=== PATIENT | male | born 1975 | race Caucasian/White ===

== ENCOUNTER 2019-03-08 09:55 | Emergency (ER) | payer OTHER ==
[2019-03-08] MEDS ORDERED: MORPHINE 10 MG/ML VIAL IVP STA ×2 (10:09→10:51)
[2019-03-08] MEDS ORDERED: ONDANSETRON 4 MG/2 ML VIAL IVP STA (10:09)
[2019-03-08] MEDS ORDERED: SODIUM CHLORIDE 0.9% 1,000 ML IV STA (10:09)
[2019-03-08 10:25] LABS: BASOPHILS # (AUTO) 0.1 10^3/uL (0.0-0.1); BASOPHILS % (AUTO) 1.3 %; EOSINOPHILS # (AUTO) 0.1 10^3/uL (0.0-0.7); EOSINOPHILS % (AUTO) 1.7 %; HGB - HEMOGLOBIN 15.7 g/dL (14.0-18.0); LYMPHOCYTES # (AUTO) 2.5 10^3/uL (1.5-3.5); LYMPHOCYTES % (AUTO) 34.2 %; MEAN CORPUSCULAR HEMOGLOBIN 31.9 pg (27.0-31.0); MEAN CORPUSCULAR HGB CONC 36.3 g/dL (32.0-36.0); MEAN PLATELET VOLUME 9.7 fL (7.4-11.4); MONOCYTES # (AUTO) 0.5 10^3/uL (0.0-1.0); MONOCYTES % (AUTO) 7.4 %; PLT - PLATELET COUNT 339 10^3/uL (130-450); RED BLOOD COUNT 4.92 10^6/uL (4.70-6.10); RED CELL DISTRIBUTION WIDTH 12.7 % (12.0-15.0); WHITE BLOOD COUNT 7.2 x10^3/uL (4.8-10.8)
[2019-03-08] MEDS ORDERED: IOVERSOL 320 100 ML VIAL IVP ONE ×2 (10:26→15:38)
--- NOTE | 2019-03-08 10:40 | ED Physician Documentation ---
History of Present Illness - Stated complaint Stated Complaint: SIDE PX - Chief complaint Chief Complaint: Abd Pain - Additonal information Additional information: This is a 43 year old male who presents with acute onset right flank pain that began suddenly this morning and is associated with nausea. He states the pain is sharp and located over the right lower abdomen radiating to the flank. He has never had a kidney stone, and still has his appendix. No fever. He has not noticed hematuria. Review of Systems Constitutional: denies: Fever Cardiac: denies: Chest pain / pressure GI: reports: Abdominal Pain, Nausea : denies: Dysuria Skin: denies: Rash Musculoskeletal: reports: Back pain Neurologic: denies: Generalized weakness Immunocompromised: denies: Immunocompromised PD PAST MEDICAL HISTORY - Past Medical History GI: Other (diverticulosis) - Past Surgical History Ortho: Arthroscopic surgery - Present Medications Home Medications: Ambulatory Orders Medication Instructions Recorded Confirmed Hydrocodone/Acetaminophen 1 - 2 each PO Q6H PRN #10 tablet 03/08/19 [Hydrocodon-Acetaminophen 5-325] Ondansetron Odt [Zofran] 4 mg TL Q6H PRN #10 tablet 03/08/19 Tamsulosin [Flomax] 0.4 mg PO DAILY #14 capsule 03/08/19 - Allergies Allergies/Adverse Reactions: Allergies Allergy/AdvReac Type Severity Reaction Status Date / Time No Known Drug Allergies Allergy Verified 03/08/19 10:03 - Living Situation Living Arrangement: reports: At home - Social History Does the pt smoke?: No Does the pt drink ETOH?: Yes ETOH Use: Liquor (occasional) PD ED PE NORMAL - Vitals Vital signs reviewed: Yes - General General: Alert and oriented X 3 - HEENT HEENT: PERRL - Neck Neck: Supple, no meningeal sign - Cardiac Cardiac: RRR - Respiratory Respiratory: Clear bilaterally - Abdomen Abdomen: Soft, Non distended, Other (Very mild RLQ tenderness to palpation without guarding) - Derm Derm: Warm and dry - Extremities Extremities: No deformity - Neuro Neuro: Alert and oriented X 3 Results - Vitals Vitals: Vital Signs - 24 hr 03/08/19 03/08/19 03/08/19 10:02 10:08 10:30 Temperature 37.2 C Heart Rate 78 79 84 Respiratory 24 28 H 22 Rate Blood Pressure 172/116 H 161/117 H 150/32 H O2 Saturation 99 99 99 11/04/19 11/04/19 11/04/19 11:10 11:45 12:30 Temperature Heart Rate 77 73 72 Respiratory 16 16 16 Rate Blood Pressure 137/86 H 128/85 H 117/89 H O2 Saturation 97 96 97 03/08/19 03/08/19 13:10 13:20 Temperature 98.7 C H Heart Rate 79 85 Respiratory 16 18 Rate Blood Pressure 118/79 120/82 H O2 Saturation 97 98 Oxygen O2 Source Room air - Labs Labs: Laboratory Tests 03/08/19 03/08/19 03/08/19 10:20 10:34 12:25 WBC 7.2 RBC 4.92 Hgb 15.7 Hct 43.3 MCV 88.0 MCH 31.9 H MCHC 36.3 H RDW 12.7 Plt Count 339 MPV 9.7 Neut # (Auto) 4.0 Lymph # (Auto) 2.5 [place] # (Auto) 0.5 Eos # (Auto) 0.1 Baso # (Auto) 0.1 Absolute Nucleated RBC 0.00 Nucleated RBC % 0.0 Sodium 139 Potassium 4.1 Chloride 105 Carbon Dioxide 22 Anion Gap 12.0 BUN 18 Creatinine 1.2 Estimated GFR (MDRD) 66 L Glucose 119 H Calcium 9.4 Total Bilirubin 0.8 AST 34 ALT 59 Alkaline Phosphatase 60 Total Protein 7.7 Albumin 4.7 Globulin 3.0 Albumin/Globulin Ratio 1.6 Lipase 29 Urine Color YELLOW Urine Clarity CLEAR Urine pH 7.5 Ur Specific Crocker <=1.005 Urine Protein NEGATIVE Urine Glucose (UA) NEGATIVE Urine Ketones NEGATIVE Urine Occult Blood LARGE H Urine Nitrite NEGATIVE Urine Bilirubin NEGATIVE Urine Urobilinogen 0.2 (NORMAL) Ur Leukocyte Esterase NEGATIVE Urine RBC 11-25 H Urine WBC 0-3 Ur Squamous Epith Cells NONE SEEN Urine Bacteria None Seen Ur Microscopic Review INDICATED Urine Culture Comments NOT INDICATED - Rads (name of study) CT abd/pelvis Radiology: Other (4mm right UVJ stone) PD MEDICAL DECISION MAKING - ED course Complexity details: considered differential (Neprholithasis, UTI, appendicitis, obstruction, hernia) ED course: Pt was given morphine and zofran for pain, he required an additional dose of morphine for further pain control. Labs show normal kidney function, CT shows 4mm R UVJ stone, and UA negative for infection. After toradol patient's pain was very well controlled. I discussed the diagnosis and treatment, prescribed tamsulosin, zofran, and hydrocodone for pain not controlled by ibuprofen, and patient was discharged home in good condition with follow up instructions and return precautions Departure - Departure Disposition: 01 Home, Self Care Clinical Impression: Renal colic Condition: Good Instructions: ED Stone Renal W Colic Follow-Up: Your,PCP [Other] Prescriptions: Hydrocodone/Acetaminophen [Hydrocodon-Acetaminophen 5-325] 1 - 2 each PO Q6H PRN #10 tablet PRN Reason: pain Ondansetron Odt [Zofran] 4 mg TL Q6H PRN #10 tablet PRN Reason: Nausea / Vomiting Tamsulosin [Flomax] 0.4 mg PO DAILY #14 capsule Comments: You have a 4 mm kidney stone, this will likely pass on its own. Please take the Flomax, you may take ibuprofen for pain control, if this is not effective you may use the hydrocodone sparingly. Return if you have persistent vomiting, worsening pain, fever, or other concerning symptoms. Please follow-up with your primary care provider and consider establishing with a urologist. Do not drink alcohol or drive while taking narcotic pain medication. Note that many narcotic pain relievers also contain Tylenol/acetaminophen. Please ensure that your total dose of acetaminophen from all sources does not exceed 3 g (3000 mg) per day. You may get constipated while on this medication. Take a stool softener such as Colace twice a day while you are on it. Also add an [id number] laxative such as senna or MiraLAX on any day that you do not have a bowel movement. If you received a narcotic pain medication or sedative while in the emergency department, do not drive for the next 24 hours. Discharge Date/Time: 03/08/19 13:20
[2019-03-08] MEDS ORDERED: METOCLOPRAMIDE 10 MG/2 ML VIAL IVP STA (10:50)
[2019-03-08 10:52] LABS: ALBUMIN 4.7 g/dL (3.2-5.5); ALBUMIN/GLOBULIN RATIO 1.6 (1.0-2.2); BILIRUBIN,TOTAL 0.8 mg/dL (0.2-1.0); CALCIUM 9.4 mg/dL (8.5-10.3); CREATININE 1.2 mg/dL (0.6-1.2); TOTAL PROTEIN 7.7 g/dL (6.7-8.2)
--- NOTE | 2019-03-08 11:38 | CT Report ---
Reason: RLQ pain, sudden onset Procedure Date: 03/08/2019 Accession Number: [id number] / [id number] Procedure: CT - Abdomen/Pelvis W CPT Code: Final Report FULL RESULT: EXAM: CT ABDOMEN AND PELVIS EXAM DATE: 03/08/2019 11:11 AM. CLINICAL HISTORY: RLQ pain, sudden onset. COMPARISONS: None. TECHNIQUE: Routine helical CT imaging was performed through the abdomen and pelvis. IV contrast: OPTI 320 100ML. Enteric contrast: No. Reconstructions: Coronal and sagittal. In accordance with CT protocol optimization, one or more of the following dose reduction techniques were utilized for this exam: automated exposure control, adjustment of mA and/or KV based on patient size, or use of iterative reconstructive technique. FINDINGS: Lung Bases: Unremarkable. Liver: Diffuse decreased liver attenuation compatible with fatty infiltration. No focal lesion evident. Gallbladder/Bile Ducts: Unremarkable. Spleen: Normal. Pancreas: Normal. Adrenal Glands: Normal. Kidneys: 4 mm right UVJ, ureterovesicular junction stone. Mild fullness distal right ureter. No hydronephrosis. Unremarkable left kidney. Peritoneal Cavity/Bowel: Normal. No free fluid, free air or adenopathy. No masses or acute inflammatory process. The appendix is well visualized and normal. Pelvic Organs: Prostatic calcifications. The bladder and visualized pelvic organs are within normal limits. Vasculature: No aneurysms or other significant abnormality. Bones: No significant abnormality. Other: None. IMPRESSION: 1. A 4 mm right UVJ stone. Mild fullness distal right ureter. No hydronephrosis. 2. Normal appendix. 3. Fatty liver. RADIA
[2019-03-08] MEDS ORDERED: KETOROLAC 30 MG/ML VIAL IVP STA (12:13)
[2019-03-08 12:35] LABS: BILIRUBIN,URINE NEGATIVE (NEGATIVE); GLUCOSE, URINE (UA) NEGATIVE (NEGATIVE); KETONES,URINE (UA) NEGATIVE (NEGATIVE); LEUKOCYTE ESTERASE, URINE NEGATIVE (NEGATIVE); NITRITE,URINE NEGATIVE (NEGATIVE); OCCULT BLOOD,URINE LARGE (NEGATIVE); PH,URINE 7.5 PH (5.0-7.5); PROTEIN,URINE NEGATIVE (NEGATIVE); UROBILINOGEN,URINE 0.2 (NORMAL) E.U./dL (NORMAL)
[2019-03-08 12:37] LABS: CLARITY,URINE CLEAR (CLEAR)
[2019-03-08 13:00] LABS: BACTERIA,URINE None Seen /HPF (None Seen); SQUAMOUS EPITHELIAL CELL,UR NONE SEEN (<= Few)
[2019-03-08 13:21] VITALS: BP 120/82
== END 2019-03-08 13:20 | disposition home or self-care (01) ==
LOC: ED 09:55
DX: N20.1 Calculus of ureter (principal)
CPT/HCPCS: 36415; 74177; 80053; 81001; 83690; 85025; 96361; 96374; 96375; 99283; 99284; J2765; Q9967; 81003; 87086

== ENCOUNTER 2019-06-24 07:29 | Outpatient (CLI) | payer OTHER ==
--- NOTE | 2019-06-24 10:33 | MRI Report ---
Reason: PAIN IN RT KNEE Procedure Date: 06/24/2019 Accession Number: [id number] / [id number] Procedure: MRI - Knee RT W/O CPT Code: Final Report FULL RESULT: EXAM: RIGHT KNEE MRI WITHOUT CONTRAST EXAM DATE: 06/24/2019 08:54 AM. CLINICAL HISTORY: Pain in right knee. Medial knee pain for many years. 2 previous scopes 1994. COMPARISON: None. TECHNIQUE: Multiplanar, multisequence T1-weighted and fluid-sensitive sequences of the knee without contrast. Other: None. FINDINGS: Bones: No fractures or subluxations. No marrow edema. No bone lesions. Articular Cartilage: Minimal shallow partial-thickness cartilage loss central aspects medial and lateral compartments. Deep partial-thickness fissuring/tearing at the central trochlea. Shallow irregularity over the median ridge of the patella. Medial Meniscus: Minimal blunting at the free edges. No discrete fluid-filled tear. Lateral Meniscus: The lateral meniscus is intact. Cruciate Ligaments: The anterior and posterior cruciate ligaments are intact. Collateral Ligaments: The medial collateral and lateral collateral ligamentous structures are intact. Tendons: Mild quadriceps and patellar tendinopathy. Popliteus and semimembranosus tendons unremarkable. Musculature: No edema or fatty atrophy. Other: Small joint effusion. No popliteal cyst. No loose bodies. The medial and lateral retinacula are intact. The subcutaneous tissues and fat pads are unremarkable. IMPRESSION: 1. Minimal blunting at the free edges medial meniscus. This may be postsurgical and/or degenerative fraying. No discrete fluid-filled tear. 2. Deep partial-thickness cartilage fissuring/tearing central trochlea. Minimal cartilage loss at the patella and medial and lateral compartments. 3. Small joint effusion. 4. Cruciate and collateral ligaments intact. 5. Mild quadriceps and patellar tendinopathy. RADIA
== END 2019-06-24 07:30 | disposition home or self-care (01) ==
LOC: DI 07:29
DX: S83.8X1A Sprain of other specified parts of right knee, initial encounter (principal); M76.51 Patellar tendinitis, right knee; M76.891 Other specified enthesopathies of right lower limb, excluding foot

== ENCOUNTER 2020-10-04 14:35 | Outpatient (CLI) | payer OTHER ==
[2020-10-04 15:27] VITALS: BP 123/94
--- NOTE | 2020-10-04 15:27 | SLEEP CARE CONSULTATION ---
Information from patient questionnaire entered by Shannan Gracia. I have reviewed and concur with the information entered by Shannan Gracia. This document represents the service I personally performed and the decisions made by me, Lida Velázquez ARNP. History of Present Illness Service Date and Time: 10/04/2020 1435 Reason for Visit: New patient, Previously diagnosed sleep apnea (mild - AHI - 14.4), sleep apnea on CPAP therapy ([employer]) Chief Complaint: reports: Other (yearly check up) Date of Onset: Usual bedtime: 10:30 pm Time it takes to fall asleep: 5-10 minutes Snores at night: Yes Observed to quit breathing while asleep: Yes Sleeps alone due to snoring: No Number of times waking at night: not sure Reasons for waking at night: reports: Choking, Gasping for air, Pain Toss, Turn, or Twitch while sleeping: Yes Recalls having dreams: Yes Usually gets out of bed at: 5:30 am Feels refreshed in the morning: Yes Morning headache: No Sleepy or fatigued during the day: No Ever fallen asleep while driving: No Takes day naps: No Dreams during day naps: No Prior sleep studies: Yes Year and Where: 2016 - Sleep Lab Additional HPI information: SANGITA CRUZ who was previoudly diagnosed to have mild, AHI 14.4, obstructive sleep apnea-hypopnea syndrome and comes in today to establish care for CPAP therapy. He was going to Sleep lab for follow ups and then to [facility] who did not follow through for him to get supplies. - Parasomnia Symptoms Ever been unable to move upon waking from sleep: No Walks in sleep: No Talks in sleep: No Ever acted out dreams in sleep: No Ever felt weak in the knees when startled or emotional: No Bothered by creepy, crawly, restless sensations in legs: No Problems with memory or concentration: No CPAP Compliance Data - Data Reviewed with Patient Average duration of nightly device use: 7 hr 7 min Compliance rate %: 95 (180 days) Current pressure setting (cmH2O): 9-11 Humidity settin Average residual AHI: 0.4 Compliance data discussion: He has been getting his supplies from [employer]. He needs to get supplies. He last got supplies over a year ago. He is using a Dreamwear nasal cushion mask. He last changed out nasal cushion yesterday. He has old mask for backup. Subjective Patient concerns: denies: aerophagia, mask discomfort, air blowing in eyes, mask leak noise, condensation in mask/hose, nasal congestion, dry mouth, nose, throat, epistaxis, other Observed to snore while using device: No Current pressure setting perceived as: comfortable On therapy, patient: reports: sleeping better, awakening more refreshed, being more awake and alert during the day, more rested overall. denies: drowsiness while driving Initial [place] Sleepiness Scale score: 4 (in 2020) Social History The patient's occupation is a [employer]. Patient is and lives in [place]. Have you smoked in the past 12 months: No (chew) Cigarettes per day (20/pack): 1 (can) Years of smokin (or more) Smoking Pack Years: 0 Alcohol use: Yes Alcohol amount and frequency: 3-4 drinks weekly Caffeine use: Yes Caffeine amount and frequency: 2 cups of coffee daily Family History Family history of sleep disordered breathing: Yes Family Hx Sleep Apnea: Father: Snoring, Sleep apnea - Untreated, Grandparent: Snoring, Sleep apnea - Untreated Allergies and Home Medications Drug allergies reviewed: Yes (NKDA) Home medication list reviewed: Yes (daily vitamin) Review of Systems Cardiovascular: denies: high blood pressure Neurological: denies: headaches Psychiatric: denies: anxiety, depression Musculoskeletal: reports: joint pain, neck pain, back pain Physical Exam Blood Pressure: 123/94 Cuff size: wrist Heart Rate: 89 O2 Saturation: 99 Height: 6 ft 1 in Weight: 188 lb Body Mass Index: 24.7 BMI Classification: Healthy weight Impression and Plan 1. Obstructive Sleep Apnea-Hypopnea Syndrome, mild, with excellent treatment compliance and excellent apnea control. On CPAP therapy, the patient has better sleep quality and is more rested overall. He has been unable to get supplies for over a year and is running out of supplies. We will need to transfer him to a new DME for him to get supplies since [facility] no longer does CPAP supplies. I will have my recycle coordinator inform of DME options. A DWO prescription will then be made. Patient advised to contact this office if further supply problems. He has significant improvement of his sleep apnea nd is very satisfied with CPAP therapy. He intends to continue with treatment long-term. Patient's apnea severity and rationale for treatment to reduce apnea, improve sleep quality and reduce cardiovascular and cerebrovascular events was reviewed. * Continue auto CPAP pressure at 9-11 cmH2O * Transfer DME * Notify me if snoring with mask or feeling that the pressure is too much or too little * Maintain a healthy weight * Call this office if any problems using CPAP * Return for follow up in 1 year, or sooner if concerns arise Counseling Topics: Weight control Visit Type: In Office Time Spent with Patient (minutes): 31 Provider Statement: I spent 100% of the Face to Face Visit with the patient with greater than 50% spent counseling the patient and coordination of care.
== END 2020-10-04 14:36 | disposition home or self-care (01) ==
LOC: SC 14:35
PROVIDERS: ATTEND Nurse Practitioner Family
DX: G47.33 Obstructive sleep apnea (adult) (pediatric) (principal); Z72.0 Tobacco use
CPT/HCPCS: 99203; 99212

== ENCOUNTER 2021-01-15 13:57 | Outpatient (CLI) | payer OTHER ==
--- NOTE | 2021-01-16 14:34 | MRI Report ---
PROCEDURE: Shoulder RT W/O INDICATIONS: PAIN IN RIGHT SHOULDER TECHNIQUE: Noncontrast oblique coronal T2 fast spin echo with fat saturation, oblique sagittal T1 spin echo and T2 fast spin echo with fat saturation, axial T1 spin echo and T2 fast spin echo with fat saturation t hrough the shoulder. COMPARISON: None. FINDINGS: Image quality: Excellent. Rotator cuff: There is partial-thickness tear of the supraspinatus, infraspinatus and subscapularis t endons involving both articular and bursal surface, and associated tendinitis. There is no tendon ret raction or rotator cuff muscle atrophy on sagittal images. Bones and bursae: No bone marrow contusions or fractures. Mild acromioclavicular and glenohumeral slim int degeneration. The acromion demonstrates conventional anatomy, without an os acromiale. No patho logic subacromial/subdeltoid bursal fluid is present. Capsule and soft tissues: There is mild degenerative fraying of the anterior superior labrum. In the absence of intra-articular contrast, the glenohumeral ligaments appear intact. The long head of the biceps tendon demonstrates normal location and morphology. The rotator interval appears normal, wit hout fibrosis. The coracohumeral ligament is normal in thickness. IMPRESSION: 1. Partial-thickness tear of the supraspinatus, infraspinous and subscapularis tendons with associate d tendinitis. 2. Mild acromioclavicular and glenohumeral joint degeneration. 3. Mild degenerative fraying of the anterior superior labrum. Reviewed by: Kay Martin MD on 01/16/2021 2:33 PM PDT Approved by: Kay Martin MD on 01/16/2021 2:33 PM PDT Station ID: [id number]
== END 2021-01-15 13:58 | disposition home or self-care (01) ==
LOC: DI 13:57
PROVIDERS: ATTEND Family Medicine
DX: M75.111 Incomplete rotator cuff tear or rupture of right shoulder, not specified as traumatic (principal); M19.011 Primary osteoarthritis, right shoulder

== ENCOUNTER 2022-09-03 10:35 | Outpatient (CLI) | payer OTHER ==
--- NOTE | 2022-09-03 11:08 | Sleep Patient Instructions ---
Sleep Center Visit Summary - Patient Visit Information Reason for Visit: Annual visit for compliance and DME prescription renewal. - Patient Instructions Additional Instructions: We will follow up in 1 year. We encourage weight loss. He may call or come in sooner with any concerns. - Clinic Information Contact: [facility] [address] [place] [address] [email or web address] T: [phone]
[2022-09-03 11:11] VITALS: BP 100/64
--- NOTE | 2022-09-03 11:11 | SLEEP CARE CONSULTATION ---
Information from patient questionnaire entered by Deisi Martin. I have reviewed and concur with the information entered by Deisi Martin. This document represents the service I personally performed and the decisions made by me, Lida Velázquez ARNP. History of Present Illness Service Date and Time: 09/03/2022 1035 Previous diagnosis: Mild, Obstructive Sleep Apnea-Hypopnea Syndrome AHI: 14.4 (in 2017) Reason for follow up: annual (LAST SEEN 10/2020) Equipment type: CPAP (RESMED Airsense 10, s/u 05/2017; SD CARD NEEDED FOR DOWNLOAD AND PRESSURE CHANGES) Equipment obtained from: [facility] (getting supplies) Mask style: Nasal Mask brand: Respironics (Dreamwear) Backup mask available: Yes (old mask) Last cushion change: 1 week or so Prior sleep studies: Yes Year and Where: 2017 - Sleep Lab HPI additional information: SANGITA CRUZ was diagnosed to have mild, AHI 14.4, obstructive sleep apnea- hypopnea syndrome and returned today for CPAP therapy annual follow-up. Sleep Study - Results Prior sleep studies: Yes Year and Where: 2017 - Sleep Lab CPAP Compliance Data - Data Reviewed with Patient Average duration of nightly device use: 6 hours 25 minutes Compliance rate %: 96 (174/180 days used) Current pressure setting (cmH2O): 9-11 Average residual AHI: 0.5 Central apnea: 0.1 Obstructive apnea: 0.4 Subjective Missed days of use due to: reports: other (fell asleep without it) Patient concerns: denies: aerophagia, mask discomfort, air blowing in eyes, mask leak noise, condensation in mask/hose, nasal congestion, dry mouth, nose, throat, epistaxis Observed to snore while using device: No Current pressure setting perceived as: comfortable On therapy, patient: reports: sleeping better, awakening more refreshed, being more awake and alert during the day, more rested overall. denies: drowsiness while driving Initial [place] Sleepiness Scale score: 4 (in 2020) Current Gilbert Sleepiness Scale score: 4 (09/03/22) Allergies and Home Medications Known drug allergies: No Drug allergies reviewed: Yes Home medication list reviewed: Yes (lisinopril 10 mg daily) Allergy and home medication list: Allergies No Known Drug Allergies Allergy (Verified 09/02/22 09:08) Review of Systems Review of systems same as previous: No (hypertension; R shoulder surgery for labrum, rotator cuff, September 2021) Physical Exam Vital signs obtained and entered by: DEISI Kang MA Blood Pressure: 100/64 (LEFT ARM) Cuff size: regular Heart Rate: 90 O2 Saturation: 95 Height: 6 ft 1 in Weight: 203 lb Weight change since last visit: 21 lb gain Body Mass Index: 26.7 BMI Classification: Overweight Impression and Plan 1. Obstructive Sleep Apnea-Hypopnea Syndrome, mild, with good treatment compliance and good apnea control. On CPAP therapy, the patient has better sleep quality and is more rested overall. Patient has significant improvement of their sleep apnea and is satisfied with current CPAP therapy. Patient denies problems with oral dryness, nasal congestion, epistaxis, skin irritation or aerophagia. I will update his prescription with his DME for further supplies. We will see him next year. Patient's apnea severity and rationale for treatment to reduce apnea, improve sleep quality and reduce cardiovascular and cerebrovascular events was reviewed. 2. Overweight, unspecified. Currently patients BMI is 26.7. Obesity increases the risk of apnea, CPAP pressure requirements and overall health risks especially cardiovascular and diabetes. Thus patient is advised to lose weight. * Continue auto CPAP pressure at 9-11 cmH2O * Update supplies * Advised to try to lose weight * Notify me if snoring with mask or feeling that the pressure is too much or too little * Call this office if any problems using CPAP * Return for follow up in 1 year, or sooner if concerns arise Counseling Topics: Spare mask, Weight loss health impact Visit Type: In Office Time Spent with Patient (minutes): 20 Provider Statement: I spent 100% of the Face to Face Visit with the patient with greater than 50% spent counseling the patient and coordination of care.
== END 2022-09-03 10:36 | disposition home or self-care (01) ==
LOC: SC 10:35
PROVIDERS: ATTEND Nurse Practitioner Family
DX: G47.33 Obstructive sleep apnea (adult) (pediatric) (principal); E66.3 Overweight; Z68.26 Body mass index [BMI] 26.0-26.9, adult
CPT/HCPCS: 99212; 99213

== ENCOUNTER 2023-09-16 08:34 | Outpatient (CLI) | payer OTHER ==
--- NOTE | 2023-09-16 09:17 | Sleep Patient Instructions ---
Sleep Center Visit Summary - Patient Visit Information Reason for Visit: Annual followup - Patient Instructions Additional Instructions: You will continue with CPAP therapy with pressure set at 9-11 cmH2O. A supply prescription will be updated with your DME. Please follow up with the sleep care office in 1 year. - Clinic Information Contact: [facility] [address] [place] [address] [email or web address] T: [phone]
--- NOTE | 2023-09-16 09:21 | SLEEP CARE CONSULTATION ---
Information from patient questionnaire entered by Deisi Martin. I have reviewed and concur with the information entered by Deisi Martin. This document represents the service I personally performed and the decisions made by , Lida Velázquez ARNP. History of Present Illness Service Date and Time: 09/16/2023 0834 Previous diagnosis: Mild, Obstructive Sleep Apnea-Hypopnea Syndrome AHI: 14.4 (in 2017) Reason for follow up: annual (LAST SEEN 09/2022) Equipment type: CPAP (RESMED Airsense 10, s/u 05/2017; SD CARD NEEDED FOR DOWNLOAD AND PRESSURE CHANGES) Equipment obtained from: [employer] (getting supplies) Mask style: Nasal Mask brand: Respironics (Dreamwear) Backup mask available: Yes Last cushion change: 2 weeks Prior sleep studies: Yes Year and Where: 2016 - Sleep Lab HPI additional information: SANGITA CRUZ was diagnosed to have mild, AHI 14.4, obstructive sleep apnea- hypopnea syndrome and returned today for CPAP therapy annual follow-up. Sleep Study - Results Prior sleep studies: Yes Year and Where: 2017 - Sleep Lab CPAP Compliance Data - Data Reviewed with Patient Average duration of nightly device use: 7 hours 4 minutes Compliance rate %: 98 (357/365 days used) Current pressure setting (cmH2O): 9-11 Average residual AHI: 0.4 Central apnea: 0.1 Obstructive apnea: 0.2 Hypopnea: 0.1 Average large leak: 3.4 L/min Subjective Missed days of use due to: reports: travel, other (fell asleep on couch) Patient concerns: denies: aerophagia, mask discomfort, air blowing in eyes, mask leak noise, condensation in mask/hose, nasal congestion, dry mouth, nose, throat, epistaxis Observed to snore while using device: No Current pressure setting perceived as: comfortable On therapy, patient: reports: sleeping better, awakening more refreshed, being more awake and alert during the day, more rested overall. denies: drowsiness while driving Initial Floral Sleepiness Scale score: 4 (in 2020) Current Floral Sleepiness Scale score: 5 (09/16/23) Allergies and Home Medications Known drug allergies: No Drug allergies reviewed: Yes Home medication list reviewed: Yes (Losartan 20 mg daily) Allergy and home medication list: Allergies No Known Drug Allergies Allergy (Verified 09/11/23 09:58) Review of Systems Review of systems same as previous: Yes (NO CHANGE) Physical Exam Vital signs obtained and entered by: DEISI Kang MA Blood Pressure: 143/101 (RIGHT ARM) Cuff size: regular Heart Rate: 93 O2 Saturation: 100 Height: 6 ft 1 in Weight: 204 lb 9.6 oz Body Mass Index: 26.9 BMI Classification: Overweight Impression and Plan 1. Obstructive Sleep Apnea-Hypopnea Syndrome, mild, with good treatment compliance and good apnea control. On CPAP therapy, the patient has better sleep quality and is more rested overall. Patient has significant improvement of their sleep apnea and is satisfied with current CPAP therapy. Patient denies problems with oral dryness, nasal congestion, epistaxis, skin irritation or aerophagia. Patient's apnea severity and rationale for treatment to reduce apnea, improve sleep quality and reduce cardiovascular and cerebrovascular events was reviewed. 2. Overweight, unspecified. Currently patients BMI is 26.9. Obesity increases the risk of apnea, CPAP pressure requirements and overall health risks especially cardiovascular and diabetes. Thus patient is advised to maintain a healthy weight. * Continue auto CPAP pressure at 9-11 cmH2O * Update supply prescription * Notify me if snoring with mask or feeling that the pressure is too much or too little * Attempt to lose weight * Call this office if any problems using CPAP * Return for follow up in 12 months, or sooner if concerns arise Counseling Topics: Spare mask, Weight control Prescriptions: Device supplies Follow up with Sleep Care in: 1 year Visit Type: In Office Time Spent with Patient (minutes): 20 Provider Statement: I spent 100% of the Face to Face Visit with the patient with greater than 50% spent counseling the patient and coordination of care.
[2023-09-16 09:24] VITALS: BP 143/101; O2SAT 100
== END 2023-09-16 08:35 | disposition home or self-care (01) ==
LOC: SC 08:34
PROVIDERS: ATTEND Nurse Practitioner Family
DX: G47.33 Obstructive sleep apnea (adult) (pediatric) (principal); E66.3 Overweight; Z68.26 Body mass index [BMI] 26.0-26.9, adult
CPT/HCPCS: 99212; 99213